=== PATIENT | female | born 1960 | race Caucasian/White ===

== ENCOUNTER 2018-06-29 06:21 | Inpatient (IN) | payer BC ==
--- NOTE | 2018-06-29 06:30 | ED ---
Chest Pain HPI - General Chief Complaint: Chest Pain Stated Complaint: Chest pain Time Seen by Provider: 06/29/18 06:29 Source: patient Mode of arrival: wheelchair Limitations: no limitations - History of Present Illness Initial Comments: Mabel is a morbidly obese 58-year-old female with past medical history of hypertension, hyperlipidemia for which she is currently not on any medications due to medication reaction. Patient presents the emergency department today with a complaint of chest pain. Patient reports that yesterday evening before going to bed she had some sharp chest pains radiating to her back however they resolved and she was able sleep through the night. She woke this morning feeling a lot of pressure in her chest, patient reports she does have a history of asthma but this did not feel similar. She reports a pressure-like sensation throughout her entire chest and palpitations. Patient denies any shortness of breath wheezing or lightheadedness. She denies any diaphoresis. Patient does report a family history of cardiac disease though she has no previous known history of any cardiac disease. - Related Data Home Medications Medication Instructions Recorded Confirmed Fluticasone/Salmeterol [Advair 1 inhalation PO DAILY 03/03/15 03/07/15 100-50 Diskus] Loratadine [Claritin] 10 mg PO DAILY 03/03/15 06/29/18 Losartan [Cozaar] 25 mg PO DAILY 03/03/15 06/29/18 diphenhydrAMINE [Benadryl] 25 mg PO HS PRN 03/03/15 03/07/15 Allergies Allergy/AdvReac Type Severity Reaction Status Date / Time Sulfa (Sulfonamide Allergy Rash/Hives Verified 06/29/18 07:52 Antibiotics) Review of Systems ROS Statement: Those systems with pertinent positive or pertinent negative responses have been documented in the HPI. ROS Other: All systems not noted in ROS Statement are negative. EKG Findings - EKG Comments: EKG Findings:: KG obtained due to complaint of chest pain. EKG obtained at 6:34 AM, rate is 123 rhythm is a wide complex tachycardia, leftward deviation left bundle branch block no acute ST elevations or depressions no evidence of acute ischemia or infarction. There are no previous EKGs for comparison. Past Medical History Past Medical History: Asthma, Hyperlipidemia, Hypertension, Osteoarthritis (OA) History of Any Multi-Drug Resistant Organisms: None Reported Past Surgical History: Breast Surgery Additional Past Surgical History / Comment(s): HEMORRHOIDECTOMY Past Anesthesia/Blood Transfusion Reactions: Motion Sickness Past Psychological History: No Psychological Hx Reported Smoking Status: Never smoker Past Alcohol Use History: Occasional Past Drug Use History: None Reported - Past Family History Mother Family Medical History: No Reported History General Exam - General Exam Comments Initial Comments: Physical Exam GENERAL: Patient is well-developed and well-nourished. Patient is nontoxic and well- hydrated and is in no distress. HENT: Normocephalic, Atraumatic. EYES: PERRL, EOMI PULMONARY: Unlabored respirations. No audible rales rhonchi or wheezing was noted. CARDIOVASCULAR: There is a regular rate and rhythm without any murmurs gallops or rubs. ABDOMEN: Soft and nontender with normal bowel sounds. SKIN: Skin is clear with no lesions or rashes and otherwise unremarkable. : Deferred NEUROLOGIC: Patient is alert and oriented x3. Moving all extremities spontaneously MUSCULOSKELETAL: Normal extremities with adequate strength and full range of motion. No lower extremity swelling or edema. No calf tenderness. PSYCHIATRIC: Normal psychiatric evaluation. Limitations: no limitations Limitations: no limitations Course Vital Signs 06/29/18 06/29/18 06/29/18 06:23 06:47 07:30 Temperature 97.5 F L Pulse Rate 78 85 85 Respiratory 20 16 18 Rate Blood Pressure 193/115 148/83 130/74 O2 Sat by Pulse 95 97 96 Oximetry Chest Pain [facility] Patient was seen and evaluated, history was obtained from patient EKG wide QRS tachycardia, no previous EKG for comparison, significant artifact Chest x-ray with cardiomegaly no other abnormalities Labs were unremarkable, troponin I elevated next Patient's heart rate has decreased repeat EKG is normal sinus rhythm rate of 79 with a leftward deviation, left bundle-branch block, OH is 158, QRS 146, QTC 481, there is no acute ST elevations or depressions no evidence for acute ischemia or infarction. Patient heart score is 5 - history, age, risk factors Given the history, risk factors I will plan to admit her for further evaluation by cardiology. Patient care was discussed with Dr. Bueno who agrees with plan for admission Disposition Clinical Impression: Chest pain, Obesity, LBBB (left bundle branch block) Disposition: ADMITTED IP TO THIS HOSP Condition: Stable Is patient prescribed a controlled substance at d/c from ED?: No Referrals: Aiyana Russo DO [Primary Care Provider] - 1-2 days
[2018-06-29] MEDS ORDERED: HEPARIN SODIUM,PORCINE 5,000 UNIT/ML 1 ML VIAL IV PRN (06:57)
[2018-06-29] MEDS ORDERED: HEPARIN SODIUM,PORCINE 5,000 UNIT/ML 1 ML VIAL IV ONE (06:57)
[2018-06-29 07:07] LABS: Basophils # (A) 0.1 k/uL (0-0.2); Basophils % (A) 1 %; Eosinophils # (A) 0.3 k/uL (0-0.7); Eosinophils % (A) 4 %; HGB 14.9 gm/dL (11.4-16.0); Lymphocytes # (A) 1.8 k/uL (1.0-4.8); Lymphocytes % (A) 22 %; MCH 31.1 pg (25.0-35.0); MCHC 33.9 g/dL (31.0-37.0); MCV 91.8 fL (80.0-100.0); Mean Platelet Volume 6.4; Monocytes # (A) 0.4 k/uL (0-1.0); Monocytes % (A) 5 %; Neutrophils # (A) 5.5 k/uL (1.3-7.7); Neutrophils % (A) 66 %; Platelet Count 175 k/uL (150-450); RBC 4.79 m/uL (3.80-5.40); RDW 14.3 % (11.5-15.5); WBC 8.3 k/uL (3.8-10.6)
[2018-06-29] MEDS: HEPARIN SOD,PORK IN 0.45% NACL 25,000 UNIT in 0.45% NACL 1 250ML.BAG IV SCH (07:11)
[2018-06-29 07:16] LABS: ALT 97 U/L (9-52); AST 89 U/L (14-36); Albumin 4.1 g/dL (3.5-5.0); Alkaline Phosphatase 130 U/L (38-126); Anion Gap 7 mmol/L; Blood Urea Nitrogen 14 mg/dL (7-17); Calcium 9.5 mg/dL (8.4-10.2); Carbon Dioxide 24 mmol/L (22-30); Chloride 110 mmol/L (98-107); Glucose 134 mg/dL (74-99); Magnesium 1.8 mg/dL (1.6-2.3); Potassium 4.2 mmol/L (3.5-5.1); Sodium 141 mmol/L (137-145); Total Bilirubin 0.9 mg/dL (0.2-1.3); Total Protein 7.1 g/dL (6.3-8.2)
--- NOTE | 2018-06-29 07:23 | XR ---
EXAMINATION TYPE: XR chest 2V DATE OF EXAM: 06/29/2018 HISTORY: Chest Pain. REFERENCE: NONE. FINDINGS: Heart size is upper limits of normal. There is a calcified granuloma in the right upper lob e. The lungs are otherwise clear. Pleural spaces are clear. IMPRESSION: 1. BORDERLINE CARDIOMEGALY. 2. EVIDENCE OF OLD GRANULOMATOUS DISEASE.
[2018-06-29 07:43] LABS: Partial Thromboplastin Time 25.1 sec (22.0-30.0); Prothrombin Time 10.4 sec (9.0-12.0)
[2018-06-29] MEDS ORDERED: NITROGLYCERIN SL TABS 0.4 MG TAB SUBLINGUAL PRN (07:44)
--- NOTE | 2018-06-29 11:56 | P.CRDCN ---
History of Present Illness Consult date: 06/29/18 Chief complaint: Chest pain History of present illness: This is a pleasant 58-year-old female patient with a past medical history significant for hypertension as well as asthma presented to the emergency room complaining of chest discomfort. She was in her usual state of health until yesterday when she was at home and she did have chest discomfort at the left upper chest as a sharp kind of discomfort with some radiation to her neck without any associated symptoms. The discomfort was of brief duration. 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 The discomfort lasted that she presented to the emergency room. It lasted at least about an hour. The patient underwent a workup including EKG showing sinus rhythm without any ischemic ST or T-wave abnormalities. She had only one set of enzymes came in to be unremarkable. The chest x-ray showed no acute abnormalities. She does have only hypertension as a risk factor for CAD but she states also that she does have her brother who was diagnosed with "heart attack" in the past. The patient does not smoke. Past Medical History Past Medical History: Asthma, Hyperlipidemia, Hypertension, Osteoarthritis (OA) Additional Past Medical History / Comment(s): No medications for tj cholesterol due to elevated liver enzymes. stopped 6-8 months ago. History of Any Multi-Drug Resistant Organisms: None Reported Past Surgical History: Breast Surgery Additional Past Surgical History / Comment(s): HEMORRHOIDECTOMY Past Anesthesia/Blood Transfusion Reactions: Motion Sickness Past Psychological History: No Psychological Hx Reported Smoking Status: Never smoker Past Alcohol Use History: Occasional Past Drug Use History: None Reported - Past Family History Father Family Medical History: No Reported History Brother(s) Family Medical History: Myocardial Infarction ([place]) Additional Family Medical History / Comment(s): Mi at 30 Mother Family Medical History: No Reported History Additional Family Medical History / Comment(s): Grandparents on both sides have cardiac history-diagnosis. Medications and Allergies Home Medications Medication Instructions Recorded Confirmed Type Budesonide/Formoterol Fumarate 2 puff INHALATION BID 06/29/18 06/29/18 History [Symbicort 160-4.5 Mcg Inhaler] Cetirizine HCl [Zyrtec] 10 mg PO DAILY 06/29/18 06/29/18 History Losartan [Cozaar] 50 mg PO DAILY 06/29/18 06/29/18 History Allergies Allergy/AdvReac Type Severity Reaction Status Date / Time Sulfa (Sulfonamide Allergy Rash/Hives Verified 06/29/18 07:52 Antibiotics) Physical Exam Vitals: Vital Signs Temp Pulse Pulse Resp BP BP Pulse Ox 06/29/18 11:03 95 06/29/18 10:58 97.6 F 79 18 141/74 95 06/29/18 10:54 79 18 06/29/18 10:21 97.6 F 06/29/18 10:00 79 13 122/61 99 06/29/18 09:30 86 12 127/66 99 06/29/18 09:00 89 20 115/64 98 06/29/18 08:30 86 7 L 114/69 96 06/29/18 08:02 89 18 114/68 98 06/29/18 08:00 93 19 140/76 99 06/29/18 07:53 84 18 140/76 98 06/29/18 07:30 85 18 130/74 96 06/29/18 06:47 85 16 148/83 97 06/29/18 06:23 97.5 F L 78 20 193/115 95 Intake and Output 06/28/18 06/29/18 06/29/18 22:59 06:59 14:59 Intake Total 240 Output Total 300 Balance -60 Intake: IV 240 .9 @ 20 240 Output: Urine 300 Other: Voiding Method Toilet # Voids 1 Weight 115.666 kg - Constitutional General appearance: no acute distress - Respiratory Respiratory: bilateral: CTA - Cardiovascular Rhythm: regular Heart sounds: normal: S1, S2 Results 06/29/18 06:49 06/29/18 06:49 Cardiac Enzymes 06/29/18 06/29/18 Range/Units 06:49 06:49 AST 89 H (14-36) U/L Troponin I <0.012 (0.000-0.034) ng/mL Coagulation 06/29/18 Range/Units 06:49 PT 10.4 (9.0-12.0) sec APTT 25.1 (22.0-30.0) sec CBC 06/29/18 Range/Units 06:49 WBC 8.3 (3.8-10.6) k/uL RBC 4.79 (3.80-5.40) m/uL Hgb 14.9 (11.4-16.0) gm/dL Hct 44.0 (34.0-46.0) % Plt Count 175 (150-450) k/uL Comprehensive Metabolic Panel 06/29/18 Range/Units 06:49 Sodium 141 (137-145) mmol/L Potassium 4.2 (3.5-5.1) mmol/L Chloride 110 H (98-107) mmol/L Carbon Dioxide 24 (22-30) mmol/L BUN 14 (7-17) mg/dL Creatinine 0.58 (0.52-1.04) mg/dL Glucose 134 H (74-99) mg/dL Calcium 9.5 (8.4-10.2) mg/dL AST 89 H (14-36) U/L ALT 97 H (9-52) U/L Alkaline Phosphatase 130 H (38-126) U/L Total Protein 7.1 (6.3-8.2) g/dL Albumin 4.1 (3.5-5.0) g/dL Current Medications Generic Name Dose Route Start Last Admin Trade Name Freq PRN Reason Stop Dose Admin Aspirin 325 mg 06/30/18 09:00 Aspirin PO DAILY [facility] Heparin Sodium (Porcine) 0 unit 06/29/18 06:57 Heparin IV PER PROTOCOL PRN Low PTT Protocol Heparin Sodium/Sodium Chloride 250 mls @ 10.005 mls/hr 06/29/18 07:00 06/29/18 07:11 25,000 unit/ Sodium Chloride IV 8.65 units/kg/hr .Q24H [facility] 10.005 mls/hr Administration Protocol 8.65 UNITS/KG/HR Nitroglycerin 0.4 mg 06/29/18 07:44 06/29/18 07:53 Nitrostat SUBLINGUAL 0.4 mg Q5M PRN Administration Chest Pain Intake and Output 06/28/18 06/29/18 06/29/18 22:59 06:59 14:59 Intake Total 240 Output Total 300 Balance -60 Intake: IV 240 .9 @ 20 240 Output: Urine 300 Other: Voiding Method Toilet # Voids 1 Weight 115.666 kg 06/29/18 06:49 06/29/18 06:49 Assessment and Plan Assessment: Assessment #1 two episodes of chest discomfort #2 hypertension #3 asthma #4 family history of CAD Plan #1 acute coronary syndrome to be ruled out. #2 we'll follow-up with the serial cardiac enzymes #3 further recommendation to follow that. Thank you for allowing us but spitting her care and we will continue following up with the patient
--- NOTE | 2018-06-29 14:21 | P.HPIM ---
History of Present Illness H&P Date: 06/29/18 Chief Complaint: Chest pain Mabel Lujan is a 58-year-old female who presented to [facility] emergency room with a chief complaint of chest pain patient initially she had sharp pain in the chest that she describes like stabbing she went to sleep she woke up in the morning still complaining of chest pain at this time it was dull pressure in the chest she came to emergency room and was evaluated EKG revealed evidence of left bundle branch block first set of cardiac enzymes including troponin were negative she was admitted to telemetry floor she was started on IV heparin and cardiology consultation was requested. Patient denies having any cardiac history in the past she stated that she had an EKG more than 10 years ago and she does not remember having been told that she has left bundle branch block or any other abnormality on EKG she does not smoke she never smoked she does not have any history of hypertension or hyperlipidemia or diabetes per patient. She has a history of coronary artery disease in her grandparent at late age. Patient was seen and examined on the telemetry floor on 06/29/2018 at this time she is chest pain-free. She is stable and denies any symptoms at this time. Past Medical History Past Medical History: Asthma, Hyperlipidemia, Hypertension, Osteoarthritis (OA) Additional Past Medical History / Comment(s): No medications for tj cholesterol due to elevated liver enzymes. stopped 6-8 months ago. History of Any Multi-Drug Resistant Organisms: None Reported Past Surgical History: Breast Surgery Additional Past Surgical History / Comment(s): HEMORRHOIDECTOMY Past Anesthesia/Blood Transfusion Reactions: Motion Sickness Past Psychological History: No Psychological Hx Reported Smoking Status: Never smoker Past Alcohol Use History: Occasional Past Drug Use History: None Reported - Past Family History Father Family Medical History: No Reported History Brother(s) Family Medical History: Myocardial Infarction ([place]) Additional Family Medical History / Comment(s): Mi at 30 Mother Family Medical History: No Reported History Additional Family Medical History / Comment(s): Grandparents on both sides have cardiac history-diagnosis. Medications and Allergies Home Medications Medication Instructions Recorded Confirmed Type Budesonide/Formoterol Fumarate 2 puff INHALATION BID 06/29/18 06/29/18 History [Symbicort 160-4.5 Mcg Inhaler] Cetirizine HCl [Zyrtec] 10 mg PO DAILY 06/29/18 06/29/18 History Losartan [Cozaar] 50 mg PO DAILY 06/29/18 06/29/18 History Allergies Allergy/AdvReac Type Severity Reaction Status Date / Time Sulfa (Sulfonamide Allergy Rash/Hives Verified 06/29/18 07:52 Antibiotics) Physical Exam Vitals: Vital Signs Temp Pulse Pulse Resp BP BP Pulse Ox 06/29/18 11:03 95 06/29/18 10:58 97.6 F 79 18 141/74 95 06/29/18 10:54 79 18 06/29/18 10:21 97.6 F 06/29/18 10:00 79 13 122/61 99 06/29/18 09:30 86 12 127/66 99 06/29/18 09:00 89 20 115/64 98 06/29/18 08:30 86 7 L 114/69 96 06/29/18 08:02 89 18 114/68 98 06/29/18 08:00 93 19 140/76 99 06/29/18 07:53 84 18 140/76 98 06/29/18 07:30 85 18 130/74 96 06/29/18 06:47 85 16 148/83 97 06/29/18 06:23 97.5 F L 78 20 193/115 95 Intake and Output 06/28/18 06/29/18 06/29/18 22:59 06:59 14:59 Intake Total 426.7 Output Total 300 Balance 126.7 Intake: IV 240 .9 @ 20 240 Intake, IV Titration 66.7 Amount Heparin Sod,Pork in 0.45% 66.7 NaCl 25,000 unit In 0.45 % NaCl 1 250ml.bag @ 8.65 UNITS/KG/HR 10.005 mls/ hr IV .Q24H [facility] Rx#: [id number] Oral 120 Output: Urine 300 Other: Voiding Method Toilet # Voids 1 # Bowel Movements 0 Weight 115.666 kg In general patient is alert and oriented 3 in no apparent distress HEENT head normocephalic and atraumatic Neck is supple no JVD no goiter no lymphadenopathy Chest exam reveals a few scattered crackles no wheezing Cardiac exam reveals regular heart sounds no gallops no murmurs Abdomen is soft nontender no organomegaly with normal bowel sounds Extremity exam reveals no edema no cyanosis or clubbing Neurological examination reveals no gross focal deficit Results CBC & Chem 7: 06/29/18 06:49 06/29/18 06:49 Labs: Abnormal Lab Results - Last 24 Hours (Table) 06/29/18 06/29/18 Range/Units 06:49 12:15 APTT 33.4 H (22.0-30.0) sec Chloride 110 H (98-107) mmol/L Glucose 134 H (74-99) mg/dL AST 89 H (14-36) U/L ALT 97 H (9-52) U/L Alkaline Phosphatase 130 H (38-126) U/L Thrombosis Risk Factor Assmnt - Choose All That Apply Any of the Below Risk Factors Present?: Yes Each Factor Represents 1 point: Age 41-60 years, Obesity (BMI >25) Other Risk Factors: No Other congenital or acquired thrombophilia - If yes, enter type in comment: No Thrombosis Risk Factor Assessment Total Risk Factor Score: 2 Thrombosis Risk Factor Assessment Level: Low Risk Assessment and Plan Plan: #1 episodes of chest pain since last night, at this time patient is chest pain- free, EKG revealing left bundle branch block, first troponin is negative negative #2 underlying history of hypertension maintained on losartan continue #3 underlying history of asthma At this time will continue with current management, with serial EKG and cardiac enzymes checks Resume home medications losartan and Symbicort inhaler Cardiology consult following possible stress test tomorrow
[2018-06-29] MEDS: LOSARTAN 50 MG TAB PO SCH (18:00)
[2018-06-29] MEDS: SYMBICORT 160-4.5 MCG INHALER INHALATION SCH (19:37)
[2018-06-29] MEDS: LORATADINE 10 MG TAB PO SCH (20:17)
[2018-06-30 07:29] LABS: Basophils # (A) 0.1 k/uL (0-0.2); Basophils % (A) 1 %; Eosinophils # (A) 0.3 k/uL (0-0.7); Eosinophils % (A) 4 %; HCT 41.6 % (34.0-46.0); HGB 13.4 gm/dL (11.4-16.0); Lymphocytes # (A) 1.7 k/uL (1.0-4.8); Lymphocytes % (A) 23 %; MCH 29.8 pg (25.0-35.0); MCHC 32.1 g/dL (31.0-37.0); MCV 92.6 fL (80.0-100.0); Mean Platelet Volume 6.7; Monocytes # (A) 0.3 k/uL (0-1.0); Monocytes % (A) 5 %; Neutrophils # (A) 4.7 k/uL (1.3-7.7); Neutrophils % (A) 66 %; Platelet Count 136 k/uL (150-450); RBC 4.49 m/uL (3.80-5.40); RDW 14.3 % (11.5-15.5); WBC 7.2 k/uL (3.8-10.6)
[2018-06-30 07:39] LABS: Cholesterol 208 mg/dL (<200); HDL Cholesterol 52 mg/dL (40-60); LDL Cholesterol,Calculated 133 mg/dL (0-99); Triglycerides 117 mg/dL (<150)
[2018-06-30] MEDS: SYMBICORT 160-4.5 MCG INHALER INHALATION SCH ×2 (08:36→20:59)
[2018-06-30 08:53] LABS: ALT 84 U/L (9-52); AST 68 U/L (14-36); Albumin 3.6 g/dL (3.5-5.0); Alkaline Phosphatase 110 U/L (38-126); Anion Gap 6 mmol/L; Blood Urea Nitrogen 12 mg/dL (7-17); Calcium 8.8 mg/dL (8.4-10.2); Carbon Dioxide 24 mmol/L (22-30); Chloride 109 mmol/L (98-107); Glucose 114 mg/dL (74-99); Potassium 3.8 mmol/L (3.5-5.1); Sodium 139 mmol/L (137-145); Total Bilirubin 1.2 mg/dL (0.2-1.3); Total Protein 6.2 g/dL (6.3-8.2)
[2018-06-30] MEDS: HEPARIN SOD,PORK IN 0.45% NACL 25,000 UNIT in 0.45% NACL 1 250ML.BAG IV SCH ×2 (10:42→17:52)
[2018-06-30] MEDS ORDERED: AMINOPHYLLINE 500 MG/20 ML VIAL IV PRN (10:50)
[2018-06-30] MEDS ORDERED: REGADENOSON 0.4 MG/5 ML SYRINGE IV ONE (10:50)
[2018-06-30] MEDS ORDERED: CAFFEINE CITRATE 60 MG/3 ML VIAL IV PRN (10:50)
[2018-06-30] MEDS ORDERED: SODIUM CHLORIDE 0.9% IV ONE (11:00)
[2018-06-30] MEDS ORDERED: DIPYRIDAMOLE IV ONE (11:00)
--- NOTE | 2018-06-30 11:53 | P.PN ---
Subjective Progress Note Date: 06/30/18 This is a pleasant 58-year-old female patient with a past medical history significant for hypertension as well as asthma presented to the emergency room complaining of chest discomfort. She was in her usual state of health until yesterday when she was at home and she did have chest discomfort at the left upper chest as a sharp kind of discomfort with some radiation to her neck without any associated symptoms. The discomfort was of brief duration. 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 The discomfort lasted that she presented to the emergency room. It lasted at least about an hour. The patient underwent a workup including EKG showing sinus rhythm without any ischemic ST or T-wave abnormalities. She had only one set of enzymes came in to be unremarkable. The chest x-ray showed no acute abnormalities. She does have only hypertension as a risk factor for CAD but she states also that she does have her brother who was diagnosed with "heart attack" in the past. The patient does not smoke. 06/30/2018 Patient seen and examined this morning, denies any further chest discomfort. Troponins negative 3. We would recommend her to undergo a Lexiscan stress test today. Pending those results further recommendations will be made. Objective - Vital Signs Vital signs: Vital Signs Temp 98.2 F 06/30/18 11:36 Pulse 70 06/30/18 11:37 Resp 16 06/30/18 11:37 BP 148/67 06/30/18 11:36 Pulse Ox 93 L 06/30/18 11:36 Intake & Output 06/29/18 06/30/18 06/30/18 18:59 06:59 18:59 Intake Total 666.7 891.157 0 Output Total 650 Balance 16.7 891.157 0 Weight 118.2 kg 119 kg Intake: IV 240 160 .9 @ 20 240 160 Intake, IV Titration 66.7 131.157 Amount Heparin Sod,Pork in 0.45% 66.7 131.157 NaCl 25,000 unit In 0.45 % NaCl 1 250ml.bag @ 8.65 UNITS/KG/HR 10.005 mls/ hr IV .Q24H [facility] Rx#: [id number] Oral 360 600 0 Output: Urine 650 Other: Voiding Method Toilet Toilet # Voids 1 1 # Bowel Movements 0 - Exam PHYSICAL EXAMINATION: GENERAL: 88-year-old female in no acute distress at the time of my examination HEENT: Head is atraumatic, normocephalic. Pupils equal, round. Sclera anicteric. Conjunctiva are clear. Mucous membranes of the mouth are moist. Neck is supple. There is no elevated jugular venous pressure. No carotid bruit is heard. HEART EXAMINATION: Heart S1, S2 normal. No murmur or gallop heard. CHEST EXAMINATION: Lungs are clear to auscultation and precussion. No chest wall tenderness is noted on palpation or with deep breathing. ABDOMEN: Soft, nontender. Bowel sounds are heard. No organomegaly noted. EXTREMITIES: 2+ peripheral pulses with no evidence of peripheral edema and no calf tenderness noted. NEUROLOGIC patient is awake, alert and oriented 3 . . - Labs CBC & Chem 7: 06/30/18 06:23 06/30/18 06:23 Labs: Abnormal Lab Results - Last 24 Hours (Table) 06/29/18 06/29/18 06/30/18 Range/Units 12:15 19:24 06:23 Plt Count 136 L (150-450) k/uL APTT 33.4 H 36.9 H (22.0-30.0) sec Chloride (98-107) mmol/L Glucose (74-99) mg/dL AST (14-36) U/L ALT (9-52) U/L Total Protein (6.3-8.2) g/dL Cholesterol (<200) mg/dL LDL Cholesterol, Calc (0-99) mg/dL 06/30/18 06/30/18 06/30/18 Range/Units 06:23 06:23 06:23 Plt Count (150-450) k/uL APTT 63.7 H (22.0-30.0) sec Chloride 109 H (98-107) mmol/L Glucose 114 H (74-99) mg/dL AST 68 H (14-36) U/L ALT 84 H (9-52) U/L Total Protein 6.2 L (6.3-8.2) g/dL Cholesterol 208 H (<200) mg/dL LDL Cholesterol, Calc 133 H (0-99) mg/dL Assessment and Plan Plan: Assessment and plan #1 chest discomfort, atypical for acute coronary syndrome. Troponins negative 3. #2 hypertension #3 asthma #4 family history of premature coronary artery disease Plan Patient has been recommended to undergo a Lexiscan stress test today. Pending those results further recommendations will be made. DNP note has been reviewed, I agree with a documented findings and plan of care. Patient was seen and examined.
--- NOTE | 2018-06-30 12:12 | ECHOF ---
Referral Reason:chest pain MEASUREMENTS -------- HEIGHT: 165.1 cm WEIGHT: 117.9 kg BP: 140/67 IVSd: 1.4 cm (0.6 - 1.1) LVIDd: 4.4 cm (3.9 - 5.3) LVPWd: 1.3 cm (0.6 - 1.1) IVSs: 1.4 cm LVIDs: 4.1 cm LVPWs: 1.3 cm LA Diam: 3.0 cm (2.7 - 3.8) RVIDd: 2.9 cm (< 3.3) LAESV Index (A-L): 20.08 ml/m Ao Diam: 2.7 cm (2.0 - 3.7) LA Diam: 3.8 cm (2.7 - 3.8) AV Cusp: 1.4 cm (1.5 - 2.6) EPSS: 0.7 cm MV E Rogelio: 0.87 m/s MV DecT: 221 ms MV A Rogelio: 0.79 m/s MV E/A Ratio: 1.09 RAP: 5.00 mmHg RVSP: 32.20 mmHg MV EF SLOPE: 81.56 mm/s (70 - 150) MV EXCURSION: 17.33 mm (> 18.000) FINDINGS -------- Undetermined rhythm. This was a technically adequate study. The left ventricular size is normal. There is moderate concentric left ventricular hypertrophy. O verall left ventricular systolic function is normal with, an EF between 55 - 60 %. The right ventricle is normal in size. The left atrial size is normal. The right atrial size is normal. Interatrial and interventricular septum intact. There is mild aortic valve sclerosis. There is no evidence of aortic regurgitation. Mild mitral annular calcification present. Mild mitral regurgitation is present. Mild tricuspid regurgitation present. There is no evidence of pulmonary hypertension. The right v entricular systolic pressure, as measured by Doppler, is 32.20mmHg. The pulmonic valve was not well visualized. The aortic root size is normal. Normal inferior vena cava with normal inspiratory collapse consistent with estimated right atrial pre ssure of 5 mmHg. There is no pericardial effusion. CONCLUSIONS -------- 1. The left ventricular size is normal. 2. There is moderate concentric left ventricular hypertrophy. 3. Overall left ventricular systolic function is normal with, an EF between 55 - 60 %. 4. The right ventricle is normal in size. 5. The left atrial size is normal. 6. The right atrial size is normal. 7. Interatrial and interventricular septum intact. 8. There is mild aortic valve sclerosis. 9. Mild mitral annular calcification present. 10. Mild mitral regurgitation is present. 11. Mild tricuspid regurgitation present. 12. There is no evidence of pulmonary hypertension. 13. The right ventricular systolic pressure, as measured by Doppler, is 32.20mmHg. 14. The pulmonic valve was not well visualized. 15. The aortic root size is normal. 16. Normal inferior vena cava with normal inspiratory collapse consistent with estimated right atrial pressure of 5 mmHg. 17. There is no pericardial effusion. FORM BLOCK MAKER: Eve Johnson RDCS
--- NOTE | 2018-06-30 14:02 | NM ---
EXAMINATION TYPE: NM stress persantine cardiolit DATE OF EXAM: 06/30/2018 COMPARISON: NONE HISTORY: Precordial chest pain and abnormal EKG TECHNIQUE: After the intravenous administration of 10.5 mCi Tc 99m Sestamibi - Cardiolite resting SP ECT images acquired 45 minutes post injection. The patient received 0.4mg Lexiscan, 25.7 mCi Tc 99m Sestamibi - Stress images obtained [address] injection FINDINGS: Review of stress and rest SPECT images demonstrates mild decreased perfusion involving the anterior w all may reflect stress-induced ischemia. Correlate clinically. Gated analysis shows normal wall motio n with an estimated left ventricular ejection fraction of 52 %. IMPRESSION: Small area of stress-induced ischemia anterior wall is difficult to exclude. Correlate clinically.
[2018-06-30] MEDS ORDERED: NITROGLYCERIN SL TABS 0.4 MG TAB SUBLINGUAL PRN (14:11)
[2018-06-30] MEDS ORDERED: ALPRAZolam 0.25 MG TAB PO PRN (14:11)
[2018-06-30] MEDS ORDERED: ALPRAZolam 0.5 MG TAB PO PRN (14:11)
--- NOTE | 2018-06-30 14:12 | P.PN ---
Subjective Progress Note Date: 06/30/18 Mabel Lujan is a 58-year-old female who presented to [facility] emergency room with a chief complaint of chest pain patient initially she had sharp pain in the chest that she describes like stabbing she went to sleep she woke up in the morning still complaining of chest pain at this time it was dull pressure in the chest she came to emergency room and was evaluated EKG revealed evidence of left bundle branch block first set of cardiac enzymes including troponin were negative she was admitted to telemetry floor she was started on IV heparin and cardiology consultation was requested. Patient denies having any cardiac history in the past she stated that she had an EKG more than 10 years ago and she does not remember having been told that she has left bundle branch block or any other abnormality on EKG she does not smoke she never smoked she does not have any history of hypertension or hyperlipidemia or diabetes per patient. She has a history of coronary artery disease in her grandparent at late age. Patient was seen and examined on the telemetry floor on 06/29/2018 at this time she is chest pain-free. She is stable and denies any symptoms at this time. On 06/30/2018 patient alert and oriented 3. At this time patient does deny chest pain or shortness of breath. Patient undergoing stress test today. At this time patient denies any shortness of breath. Patient denies nausea vomiting or diarrhea. Patient denies any urinary burning or frequency Objective - Vital Signs Vital signs: Vital Signs Temp 98.2 F 06/30/18 11:36 Pulse 70 06/30/18 11:37 Resp 16 06/30/18 11:37 BP 148/67 06/30/18 11:36 Pulse Ox 93 L 06/30/18 11:36 Intake & Output 06/29/18 06/30/18 06/30/18 18:59 06:59 18:59 Intake Total 666.7 891.157 0 Output Total 650 Balance 16.7 891.157 0 Weight 118.2 kg 119 kg 118.841 kg Intake: IV 240 160 .9 @ 20 240 160 Intake, IV Titration 66.7 131.157 Amount Heparin Sod,Pork in 0.45% 66.7 131.157 NaCl 25,000 unit In 0.45 % NaCl 1 250ml.bag @ 8.65 UNITS/KG/HR 10.005 mls/ hr IV .Q24H GRAHAM Rx#: [id number] Oral 360 600 0 Output: Urine 650 Other: Voiding Method Toilet Toilet # Voids 1 1 1 # Bowel Movements 0 - Exam Head normocephalic Neck supple Lungs clear to auscultation bilaterally no wheezing or crackles Heart regular rate and rhythm S1-S2, no rub or gallop Abdomen is soft nontender nondistended positive bowel sounds no hepatosplenomegaly Extremities no edema Neuro alert and orientated to 3 - Labs CBC & Chem 7: 06/30/18 06:23 06/30/18 06:23 Labs: Abnormal Lab Results - Last 24 Hours (Table) 06/29/18 06/30/18 06/30/18 Range/Units 19:24 06:23 06:23 Plt Count 136 L (150-450) k/uL APTT 36.9 H (22.0-30.0) sec Chloride (98-107) mmol/L Glucose (74-99) mg/dL AST (14-36) U/L ALT (9-52) U/L Total Protein (6.3-8.2) g/dL Cholesterol 208 H (<200) mg/dL LDL Cholesterol, Calc 133 H (0-99) mg/dL 06/30/18 06/30/18 Range/Units 06:23 06:23 Plt Count (150-450) k/uL APTT 63.7 H (22.0-30.0) sec Chloride 109 H (98-107) mmol/L Glucose 114 H (74-99) mg/dL AST 68 H (14-36) U/L ALT 84 H (9-52) U/L Total Protein 6.2 L (6.3-8.2) g/dL Cholesterol (<200) mg/dL LDL Cholesterol, Calc (0-99) mg/dL Assessment and Plan Assessment: #1 episodes of chest pain since last night, at this time patient is chest pain- free, EKG revealing left bundle branch block. Patient on heparin drip Troponins negative 3. Patient underwent stress test showing small area of stress-induced ischemia anterior wall is difficult to exclude. Correlate clinically. 2-D echo completed showing an EF of 55-60%. 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 Alkaline phosphatase 1:30, ALT 97 AST 89 his numbers do appear to be trending down I performed an examination of the patient and discussed their management with the Nurse Practitioner. I have reviewed the Nurse Practitioner's notes and agree with the documented findings and plan of care
[2018-06-30] MEDS: LOSARTAN 50 MG TAB PO SCH (15:47)
[2018-06-30] MEDS: LORATADINE 10 MG TAB PO SCH (15:47)
[2018-06-30] MEDS: ASPIRIN 325 MG TAB PO SCH (15:47)
--- NOTE | 2018-06-30 20:12 | P.STRESS ---
- Stress Test Note Stress Test Results/Findings: Exam Performed: stress test Exam Date: 06/30/18 Reason for Exam: CHEST PAIN, DIFFICULTY BREATHING Height: 5 ft 5 in Weight: 118.841 kg Protocol: PERSANTINE CARDIOLITE Stage: Duration of Exercise: 12:00 Resting Heart Rate: 72 Resting Blood Pressure: 154/68 Maximum Achieved Heart Rate: 96 Maximum Achieved Blood Pressure: 175/77 85% PMHR: 138 100% PMHR: 162 METS: Technologist Comment: Stress Test Results/Findings: Baseline heart rate 72 beats a minute, Baseline blood pressure 154/68 mmHg Baseline 20 ECG shows sinus rhythm normal [place] (bundle-branch block Patient received Persantine infusion per protocol. She complained of chest discomfort through the procedure The blood pressure 175/[address] segment abnormalities noted, please note patient has an underlying left bundle branch block pattern New proportional be reported separately
[2018-07-01] MEDS: ASPIRIN 325 MG TAB PO SCH (05:08)
[2018-07-01] MEDS: LOSARTAN 50 MG TAB PO SCH (05:15)
[2018-07-01] MEDS ORDERED: ATORVASTATIN 80 MG TAB PO ONE (06:00)
[2018-07-01] MEDS ORDERED: ASPIRIN 325 MG TAB PO ONE (06:00)
[2018-07-01] MEDS ORDERED: SODIUM CHLORIDE 0.9% 1,000 ML in EMPTY BAG 1 BAG IV ONE (06:00)
[2018-07-01 07:21] LABS: Basophils % (A) 0 %; Eosinophils # (A) 0.3 k/uL (0-0.7); Eosinophils % (A) 3 %; HCT 41.9 % (34.0-46.0); HGB 13.2 gm/dL (11.4-16.0); Lymphocytes # (A) 1.8 k/uL (1.0-4.8); Lymphocytes % (A) 19 %; MCH 29.2 pg (25.0-35.0); MCHC 31.4 g/dL (31.0-37.0); MCV 93.1 fL (80.0-100.0); Mean Platelet Volume 6.9; Monocytes # (A) 0.4 k/uL (0-1.0); Monocytes % (A) 4 %; Neutrophils # (A) 6.5 k/uL (1.3-7.7); Neutrophils % (A) 71 %; Platelet Count 161 k/uL (150-450); RDW 14.3 % (11.5-15.5); WBC 9.2 k/uL (3.8-10.6)
[2018-07-01] MEDS: SYMBICORT 160-4.5 MCG INHALER INHALATION SCH (08:39)
[2018-07-01] MEDS ORDERED: LIDOCAINE 1% INJ 10MG/ML (20 ML MDV) ONE (10:44)
[2018-07-01] MEDS ORDERED: HEPARIN SODIUM 1,000 UN/ML (10ML VL) ONE (10:44)
[2018-07-01] MEDS ORDERED: VERAPAMIL 2.5 MG/ML 2 ML AMP ONE (10:44)
[2018-07-01 11:06] VITALS: RESP 16
[2018-07-01] MEDS ORDERED: MIDAZOLAM (PF) 2 MG/2 ML VIAL IVP ONE (11:10)
[2018-07-01] MEDS ORDERED: LIDOCAINE 1% INJ 10MG/ML (20 ML MDV) SQ ONE (11:12)
[2018-07-01] MEDS: VERAPAMIL SYRINGE (5 MG/10 ML) INTRAARTER ONE ×2 (11:13→11:23)
[2018-07-01] MEDS ORDERED: HEPARIN SODIUM 1,000 UN/ML (10ML VL) IV ONE (11:14)
[2018-07-01] MEDS ORDERED: IV FLUID CONTINUATION 150 ML IV ONE (11:15)
[2018-07-01] MEDS ORDERED: IOPAMIDOL-370 125ML BTL INJ ONE (11:23)
[2018-07-01] MEDS ORDERED: RX INFO: IV CONTRAST WAS GIVEN 1 EACH MISC MISCELLANE PRN (11:28)
[2018-07-01] MEDS ORDERED: SODIUM CHLORIDE 0.9% 1,000 ML IV SCH (11:30)
--- NOTE | 2018-07-01 12:24 | CC ---
CARDIAC CATHETERIZATION REPORT DATE OF SERVICE: 07/01/2018 PERFORMING PHYSICIAN: Brian Tran MD, Integrated Specialist. PROCEDURE PERFORMED: 1. Selective right and left coronary angiogram. 2. Left heart catheterization. INDICATION: This is a pleasant 58-year-old female patient with hypertension and dyslipidemia who presented to the hospital with chest discomfort and underwent myocardial perfusion imaging stress test and that revealed apical ischemia. Because of that, heart catheterization was advised. APPROACH: Right radial artery. COMPLICATION: None. LEVEL OF SEDATION: Moderate with sedation length of 15 minutes. PROCEDURE DESCRIPTION: After obtaining an informed consent, the patient was brought to the cardiac mushroom laborer. The right radial artery was cannulated using micropuncture technique, the micropuncture wire passed easily. Then I placed a 5-Niuean sheath in the right radial artery. After that, I gave the patient 2 mg of verapamil IA and 10,000 units of heparin IV. I did selective right and left coronary angiogram using JR4 and JL3.5 catheters. Left heart catheterization was performed using the JR4 catheter which flipped into the LV then I did pullback across the aortic valve. The procedure was completed without any complication. SELECTIVE CORONARY ANGIOGRAM: 1. The right coronary artery is a large caliber vessel and it is a dominant vessel. The proximal RCA appeared to be normal. The mid RCA has a lesion appeared to be in the range of 50%. The distal RCA appeared to have another lesion just by the bifurcation into PDA and PLV branches and appeared to be in the range of 50%. The PDA and PLV branches appeared to be normal. 2. The left main is angiographically normal. It bifurcates into the left circumflex and left anterior descending artery. 3. The left circumflex is a large caliber vessel. It is a nondominant vessel and appeared to have mild disease only. It gives rise into the first and second obtuse marginal branches, both appeared to be angiographically normal. 4. The LAD is a large caliber vessel with mild disease in the midportion only. It gives rise into a large diagonal branch which seems to be normal. HEMODYNAMICS: The left ventricular end-diastolic pressure was 10 mmHg without any gradient across the aortic valve. CONCLUSION: 1. Intermediate disease involving the right coronary artery and mild disease involving the left anterior descending artery. 2. Normal left ventricular end-diastolic pressure. POSTPROCEDURE MANAGEMENT: 1. Aggressive cholesterol control. 2. Risk factors modifications. 3. Follow up with the patient. MMODL / IJN: [id number] /
[2018-07-01] MEDS ORDERED: METOPROLOL SUCCINATE (ER) 25 MG TAB.ER.24H PO SCH (13:15)
--- NOTE | 2018-07-01 14:00 | P.DS ---
Providers Date of admission: 06/29/18 07:44 Expected date of discharge: 07/01/18 Attending physician: Elinor Bueno Consults: 06/29/18 07:44 Consult Physician Urgent Consulting Provider: [facility] Consult Reason/Comments: chest pain, new LBBB Do you want consulting provider notified?: Yes Primary care physician: Aiyana Russo [facility] Course: Discharge diagnosis #1 episodes of chest pain since last night, at this time patient is chest pain- free, EKG revealing left bundle branch block. Patient on heparin drip Troponins negative 3. Patient underwent stress test showing small area of stress-induced ischemia anterior wall is difficult to exclude. Correlate clinically. 2-D echo completed showing an EF of 55-60%. Cardiac cath completed today showing inter mediate to disease involving the right coronary artery and mild disease involving the left anterior descending artery. Normal left ventricular end- systolic pressure. Per cardiology services aggressive cholesterol control and risk factor modifications. Patient has been cleared for discharge from cardiology standpoint once post cardiac cath protocol is completed. Patient to follow-up outpatient with cardiology services #2 underlying history of hypertension maintained on losartan continue #3 underlying history of asthma #4 elevated liver enzymes. Alkaline phosphatase 1:30, ALT 97 AST 89 his numbers do appear to be trending down. Repeat BMP ordered for 2 days #5 hyperlipidemia. Statin started per cardiology. Liver enzymes are trending down. Will order repeat CMP for 2 days and patient to follow-up with her PCP for further management Hospital course Mabel Lujan is a 58-year-old female who presented to [facility] emergency room with a chief complaint of chest pain patient initially she had sharp pain in the chest that she describes like stabbing she went to sleep she woke up in the morning still complaining of chest pain at this time it was dull pressure in the chest she came to emergency room and was evaluated EKG revealed evidence of left bundle branch block first set of cardiac enzymes including troponin were negative she was admitted to telemetry floor she was started on IV heparin and cardiology consultation was requested. Patient denies having any cardiac history in the past she stated that she had an EKG more than 10 years ago and she does not remember having been told that she has left bundle branch block or any other abnormality on EKG she does not smoke she never smoked she does not have any history of hypertension or hyperlipidemia or diabetes per patient. She has a history of coronary artery disease in her grandparent at late age. Patient was seen and examined on the telemetry floor on 06/29/2018 at this time she is chest pain-free. She is stable and denies any symptoms at this time. On 06/30/2018 patient alert and oriented 3. At this time patient does deny chest pain or shortness of breath. Patient undergoing stress test today. At this time patient denies any shortness of breath. Patient denies nausea vomiting or diarrhea. Patient denies any urinary burning or frequency On 07/01/2018 patient alert and oriented 3. Patient underwent cardiac catheterization showing intermediate disease involving the right coronary artery and mild disease involving the left anterior descending artery. Normal left ventricular end-diastolic pressure. Per cardiology patient may be discharged once post cardiac cath care is completed. At this time patient denies chest pain or shortness breath. Denies vomiting or diarrhea. Patient denies any urinary burning or frequency. I performed an examination of the patient and discussed their management with the Nurse Practitioner. I have reviewed the Nurse Practitioner's notes and agree with the documented findings and plan of care Patient Condition at Discharge: Stable Plan - Discharge Summary Discharge Rx Participant: Yes New Discharge Prescriptions: New Aspirin 81 mg PO DAILY #30 tab Atorvastatin [Lipitor] 80 mg PO HS #30 tab Nitroglycerin Sl Tabs [Nitrostat] 0.4 mg SUBLINGUAL Q5M PRN #25 tab PRN Reason: Chest Pain Metoprolol Succinate (ER) [Toprol XL] 25 mg PO DAILY #30 tab.er.24h Continue Budesonide/Formoterol Fumarate [Symbicort 160-4.5 Mcg Inhaler] 2 puff INHALATION BID Losartan [Cozaar] 50 mg PO DAILY Cetirizine HCl [Zyrtec] 10 mg PO DAILY Discharge Medication List Budesonide/Formoterol Fumarate [Symbicort 160-4.5 Mcg Inhaler] 2 puff INHALATION BID 06/29/18 [History] Cetirizine HCl [Zyrtec] 10 mg PO DAILY 06/29/18 [History] Losartan [Cozaar] 50 mg PO DAILY 06/29/18 [History] Aspirin 81 mg PO DAILY #30 tab 07/01/18 [Rx] Atorvastatin [Lipitor] 80 mg PO HS #30 tab 07/01/18 [Rx] Metoprolol Succinate (ER) [Toprol XL] 25 mg PO DAILY #30 tab.er.24h 07/01/18 [Rx] Nitroglycerin Sl Tabs [Nitrostat] 0.4 mg SUBLINGUAL Q5M PRN #25 tab 07/01/18 [Rx] Follow up Appointment(s)/Referral(s): Brian Tran MD [STAFF PHYSICIAN] - 07/11/18 1:45 pm Aiyana Russo DO [Primary Care Provider] - 1-2 days Ambulatory/Diagnostic Orders: Comprehensive Metabolic Panel [LAB.AMB] Time Frame: 2 Days, Location: None Selected Patient Instructions/Handouts: *Surgery [facility] - After Heart Catheterization - [facility] Instructions, Heart Healthy Diet (DC), Cardiac Stress Test (DC) Discharge Disposition: HOME SELF-CARE
[2018-07-01] MEDS: LORATADINE 10 MG TAB PO SCH (14:04)
[2018-07-01 15:02] VITALS: PULSE 76; TEMP 98.2
[2018-07-01 17:18] VITALS: BP 146/60
[2018-07-01] MEDS ORDERED: ATORVASTATIN 80 MG TAB PO SCH (21:00)
[2018-07-02] MEDS ORDERED: ASPIRIN 81 MG PO SCH (09:00)
== END 2018-07-01 19:30 | disposition home or self-care (01) | DRG 287 ==
LOC: EC 06:21 → 1SOBS 07:44 → OBSVTOIN 07:44 → 3SCARD 08:07
PROVIDERS: ADMIT Internal Medicine; ATTEND Internal Medicine
PROC: B2111ZZ Fluoroscopy of Multiple Coronary Arteries using Low Osmolar Contrast (ICD-10-PCS; 2018-07-01)
PROC: 4A023N7 Measurement of Cardiac Sampling and Pressure, Left Heart, Percutaneous Approach (ICD-10-PCS; principal; 2018-07-01 10:46)
DX: R07.9 Chest pain, unspecified (principal); Z68.41 Body mass index [BMI] 40.0-44.9, adult; E66.01 Morbid (severe) obesity due to excess calories; I11.9 Hypertensive heart disease without heart failure; E78.5 Hyperlipidemia, unspecified; I25.10 Atherosclerotic heart disease of native coronary artery without angina pectoris; I44.7 Left bundle-branch block, unspecified; J45.909 Unspecified asthma, uncomplicated; M19.90 Unspecified osteoarthritis, unspecified site; Z79.51 Long term (current) use of inhaled steroids; Z79.899 Other long term (current) drug therapy; Z82.49 Family history of ischemic heart disease and other diseases of the circulatory system; Z88.2 Allergy status to sulfonamides
CPT/HCPCS: 36415; 71046; 78452; 80053; 80061; 83735; 83880; 84484; 85025; 85610; 85730; 93005; 93017; 93306; 93458; 94640; 96365; 96366; 96376; 99285

== ENCOUNTER 2022-06-06 11:51 | Observation (INO) | payer BC ==
[2022-06-06] MEDS ORDERED: ASPIRIN 81 MG PO STA (12:31)
[2022-06-06] MEDS ORDERED: NITROGLYCERIN OINT 1 INCH/GM PACKET TOPICAL STA (12:31)
--- NOTE | 2022-06-06 12:42 | ED ---
General Adult HPI - General Chief complaint: Chest Pain Stated complaint: chest pain Time Seen by Provider: 06/06/22 12:00 Source: patient, RN notes reviewed, old records reviewed Mode of arrival: ambulatory Limitations: no limitations - History of Present Illness Initial comments: This a 62-year-old female who comes in stating she had 6 minutes of chest pressure that made her short of breath. Patient states in the past she has been told she has a 50% blockage. Patient states she's never had a stent in place. Patient states she has high blood pressure and high cholesterol. Patient states the chest pain came on at rest it was a pressure, heaviness sensation there was a little fluttering is well and she was very short of breath per patient denies any radiation of the pain patient states became very hot as well per patient states the pain subsided and she no longer is having any pain currently. Patient denies any recent fever chills or cough per patient denies any abdominal pain patient denies nausea vomiting diarrhea. Patient denies any calf pain or swelling legs - Related Data Home Medications Medication Instructions Recorded Confirmed Budesonide/Formoterol Fumarate 2 puff INHALATION RT-BID PRN 06/29/18 06/06/22 [Symbicort 160-4.5 Mcg Inhaler] Cetirizine HCl [Zyrtec] 10 mg PO DAILY 06/29/18 06/06/22 Aspirin EC [Ecotrin Low Dose] 81 mg PO DAILY 06/06/22 06/06/22 Losartan Potassium 100 mg PO DAILY 06/06/22 06/06/22 Metoprolol Succinate (ER) [Toprol 50 mg PO DAILY 06/06/22 06/06/22 Xl] Sertraline [Zoloft] 25 mg PO HS 06/06/22 06/06/22 diphenhydrAMINE HCL [Benadryl] 25 mg PO HS 06/06/22 06/06/22 Previous Rx's Medication Instructions Recorded Atorvastatin [Lipitor] 80 mg PO HS #30 tab 07/01/18 Allergies Allergy/AdvReac Type Severity Reaction Status Date / Time Sulfa (Sulfonamide Allergy Rash/Hives Verified 06/06/22 12:46 Antibiotics) sulfamethoxazole Allergy Rash/Hives Verified 06/06/22 12:48 [From Bactrim] trimethoprim [From Bactrim] Allergy Rash/Hives Verified 06/06/22 12:48 Review of Systems ROS Statement: Those systems with pertinent positive or pertinent negative responses have been documented in the HPI. ROS Other: All systems not noted in ROS Statement are negative. Past Medical History Past Medical History: Asthma, Coronary Artery Disease (CAD), Diabetes Mellitus, Hyperlipidemia, Hypertension, Osteoarthritis (OA) Additional Past Medical History / Comment(s): No medications for tj cholesterol due to elevated liver enzymes. stopped 6-8 months ago. History of Any Multi-Drug Resistant Organisms: None Reported Past Surgical History: Breast Surgery, Heart Catheterization Additional Past Surgical History / Comment(s): HEMORRHOIDECTOMY Past Anesthesia/Blood Transfusion Reactions: Motion Sickness Past Psychological History: No Psychological Hx Reported Smoking Status: Never smoker Past Alcohol Use History: Occasional Past Drug Use History: None Reported - Past Family History Father Family Medical History: No Reported History Brother(s) Family Medical History: Myocardial Infarction ([place]) Additional Family Medical History / Comment(s): Mi at 30 Mother Family Medical History: No Reported History Additional Family Medical History / Comment(s): Grandparents on both sides have cardiac history-diagnosis. General Exam - General Exam Comments Initial Comments: GENERAL: Patient is well-developed and well-nourished. Patient is nontoxic and well- hydrated and is in no acute distress. ENT: Neck is soft and supple. No significant lymphadenopathy is noted. Oropharynx is clear. Moist mucous membranes. Neck has full range of motion without eliciting any pain. EYES: The sclera were anicteric and conjunctiva were pink and moist. Extraocular movements were intact and pupils were equal round and reactive to light. Eyelids were unremarkable. PULMONARY: Unlabored respirations. Good breath sounds bilaterally. No audible rales rhonchi or wheezing was noted. CARDIOVASCULAR: There is a regular rate and rhythm without any murmurs gallops or rubs. ABDOMEN: Soft and nontender with normal bowel sounds. SKIN: Skin is clear with no lesions or rashes and otherwise unremarkable. NEUROLOGIC: Patient is alert and oriented x3. Cranial nerves II through XII are grossly intact. Motor and sensory are also intact. Normal speech, volume and content. Symmetrical smile. MUSCULOSKELETAL: Normal extremities with adequate strength and full range of motion. No lower extremity swelling or edema. No calf tenderness. LYMPHATICS: No significant lymphadenopathy is noted PSYCHIATRIC: Normal psychiatric evaluation. Limitations: no limitations Course Vital Signs 06/06/22 06/06/22 06/06/22 12:02 13:20 13:54 Temperature 98.0 F Pulse Rate 81 75 73 Respiratory 20 18 14 Rate Blood Pressure 144/87 134/69 131/63 O2 Sat by Pulse 96 97 96 Oximetry Medical Decision Making - Medical Decision Making EKG was interpreted by myself EKG shows sinus rhythm at 73 bpm TN interval 159 QRSs 158 QTC intervals 432 QTC is 458. Patient's EKG shows left bundle branch block patient states she's had a left bundle branch block in the past. Was pt. sent in by a medical professional or institution (, PA, [employer], urgent care, hospital, or halfway...) When possible be specific @ -No Did you speak to anyone other than the patient for history (EMS, parent, family, police, friend...)? What history was obtained from this source @ -No Did you review nursing and triage notes (agree or disagree)? Why? @ -I reviewed and agree with nursing and triage notes Were old charts reviewed (outside hosp., previous admission, EMS record, old EKG, old radiological studies, urgent care reports/EKG's, halfway records)? Report findings @ -No old charts were reviewed Differential Diagnosis (chest pain, altered mental status, abdominal pain women, abdominal pain men, vaginal bleeding, weakness, fever, dyspnea, syncope, headache, dizziness, GI bleed, back pain, seizure, CVA, palpatations, mental health, musculoskeletal)? @ -Differential Chest Pain: Stable Angina, Unstable Angina, STEMI, NSTEMI Aortic Dissection, Pneumothorax, Musculoskeletal, Esophageal Spasm GERD, Cholecystitis, Pancreatitis, Zoster, this is not meant to be an all-inclusive list. EKG interpreted by me (3pts min.). @ -As above X-rays interpreted by me (1pt min.). @ -Chest x-ray was interpreted by myself I saw no acute abnormalities CT interpreted by me (1pt min.). @ -None done U/S interpreted by me (1pt. min.). @ -None done What testing was considered but not performed or refused? (CT, X-rays, U/S, labs)? Why? @ -None What meds were considered but not given or refused? Why? @ -None Did you discuss the management of the patient with other professionals (professionals i.e. , PA, [employer], lab, RT, psych nurse, rn social services, sheet metal worker helper, teacher, fundraising officer, major case detective)? Give summary @ -I spoke with Dr. Murillo about admitting this patient and he agreed. Was smoking cessation discussed for >3mins.? @ -No Was critical care preformed (if so, how long)? @ -No Were there social determinants of health that impacted care today? How? (Homelessness, low income, unemployed, alcoholism, drug addiction, transportation, low edu. Level, literacy, decrease access to med. care, penitentiary, rehab)? @ -No Was there de-escalation of care discussed even if they declined (Discuss DNR or withdrawal of care, Hospice)? DNR status @ -No What co-morbidities impacted this encounter? (DM, HTN, Smoking, COPD, CAD, Cancer, CVA, ARF, Chemo, Hep., AIDS, mental health diagnosis, sleep apnea, morbid obesity)? @ -None Was patient admitted / discharged? Hospital course, mention meds given and route, prescriptions, significant lab abnormalities, going to OR and other pertinent info. @ -Patient arrived chest pain-free and she remained chest pain-free throughout her ED course. I spoke with Dr. Murillo after lab results came back all of which were negative and I admitted the patient I wrote admitting orders I consult cardiology I continue aspirin and Nitropaste on the floor. Undiagnosed new problem with uncertain prognosis? @ -No Drug Therapy requiring intensive monitoring for toxicity (Heparin, Nitro, Insulin, Cardizem)? @ -No Were any procedures done? @ -No Diagnosis/symptom? @ -Unstable angina Acute, or Chronic, or Acute on Chronic? @ -Acute Uncomplicated (without systemic symptoms) or Complicated (systemic symptoms)? @ -Complicated Side effects of treatment? @ -No Exacerbation, Progression, or Severe Exacerbation? @ -No Poses a threat to life or bodily function? How? (Chest pain, [place], AR, pneumonia, PE, COPD, DKA, ARF, appy, cholecystitis, CVA, Diverticulitis, Homicidal, Suicid al, threat to staff... and all critical care pts) @ -Yes this could lead to hypoperfusion and end organ dysfunction - Lab Data Result diagrams: 06/06/22 12:54 06/06/22 12:54 Lab Results 06/06/22 06/06/22 06/06/22 Range/Units 12:54 12:54 12:54 WBC 9.0 (3.8-10.6) k/uL RBC 4.63 (3.80-5.40) m/uL Hgb 13.7 (11.4-16.0) gm/dL Hct 40.4 (34.0-46.0) % MCV 87.2 (80.0-100.0) fL MCH 29.7 (25.0-35.0) pg MCHC 34.0 (31.0-37.0) g/dL RDW 14.7 (11.5-15.5) % Plt Count 178 (150-450) k/uL MPV 7.6 Neutrophils % 76 % Lymphocytes % 14 % Monocytes % 5 % Eosinophils % 4 % Basophils % 1 % Neutrophils # 6.8 (1.3-7.7) k/uL Lymphocytes # 1.3 (1.0-4.8) k/uL Monocytes # 0.4 (0-1.0) k/uL Eosinophils # 0.4 (0-0.7) k/uL Basophils # 0.1 (0-0.2) k/uL PT 10.7 (9.0-12.0) sec INR 1.0 (<1.2) APTT 23.3 (22.0-30.0) sec Sodium 138 (137-145) mmol/L Potassium 4.2 (3.5-5.1) mmol/L Chloride 104 (98-107) mmol/L Carbon Dioxide 25 (22-30) mmol/L Anion Gap 9 mmol/L BUN 11 (7-17) mg/dL Creatinine 0.53 (0.52-1.04) mg/dL Est GFR (CKD-EPI)AfAm >90 (>60 ml/min/1.73 sqM) Est GFR (CKD-EPI)NonAf >90 (>60 ml/min/1.73 sqM) Glucose 206 H (74-99) mg/dL Calcium 8.9 (8.4-10.2) mg/dL Magnesium 1.9 (1.6-2.3) mg/dL Total Bilirubin 1.5 H (0.2-1.3) mg/dL AST 55 H (14-36) U/L ALT 54 H (4-34) U/L Alkaline Phosphatase 186 H (38-126) U/L Troponin I (0.000-0.034) ng/mL Total Protein 7.1 (6.3-8.2) g/dL Albumin 4.1 (3.5-5.0) g/dL 06/06/22 Range/Units 12:54 WBC (3.8-10.6) k/uL RBC (3.80-5.40) m/uL Hgb (11.4-16.0) gm/dL Hct (34.0-46.0) % MCV (80.0-100.0) fL MCH (25.0-35.0) pg MCHC (31.0-37.0) g/dL RDW (11.5-15.5) % Plt Count (150-450) k/uL MPV Neutrophils % % Lymphocytes % % Monocytes % % Eosinophils % % Basophils % % Neutrophils # (1.3-7.7) k/uL Lymphocytes # (1.0-4.8) k/uL Monocytes # (0-1.0) k/uL Eosinophils # (0-0.7) k/uL Basophils # (0-0.2) k/uL PT (9.0-12.0) sec INR (<1.2) APTT (22.0-30.0) sec Sodium (137-145) mmol/L Potassium (3.5-5.1) mmol/L Chloride (98-107) mmol/L Carbon Dioxide (22-30) mmol/L Anion Gap mmol/L BUN (7-17) mg/dL Creatinine (0.52-1.04) mg/dL Est GFR (CKD-EPI)AfAm (>60 ml/min/1.73 sqM) Est GFR (CKD-EPI)NonAf (>60 ml/min/1.73 sqM) Glucose (74-99) mg/dL Calcium (8.4-10.2) mg/dL Magnesium (1.6-2.3) mg/dL Total Bilirubin (0.2-1.3) mg/dL AST (14-36) U/L ALT (4-34) U/L Alkaline Phosphatase (38-126) U/L Troponin I <0.012 (0.000-0.034) ng/mL Total Protein (6.3-8.2) g/dL Albumin (3.5-5.0) g/dL Disposition Clinical Impression: Unstable angina Disposition: ADMITTED IP TO THIS HOSP Referrals: Aiyana Russo DO [Primary Care Provider] - 1-2 days Time of Disposition: 14:31
[2022-06-06 13:03] LABS: Basophils # (A) 0.1 k/uL (0-0.2); Basophils % (A) 1 %; Eosinophils # (A) 0.4 k/uL (0-0.7); Eosinophils % (A) 4 %; HCT 40.4 % (34.0-46.0); HGB 13.7 gm/dL (11.4-16.0); Lymphocytes # (A) 1.3 k/uL (1.0-4.8); Lymphocytes % (A) 14 %; MCH 29.7 pg (25.0-35.0); MCV 87.2 fL (80.0-100.0); Mean Platelet Volume 7.6; Monocytes # (A) 0.4 k/uL (0-1.0); Monocytes % (A) 5 %; Neutrophils # (A) 6.8 k/uL (1.3-7.7); Neutrophils % (A) 76 %; Platelet Count 178 k/uL (150-450); RBC 4.63 m/uL (3.80-5.40); RDW 14.7 % (11.5-15.5)
[2022-06-06 13:13] LABS: ALT 54 U/L (4-34); African American GFR (CKD) >90 (>60 ml/min/1.73 sqM); Albumin 4.1 g/dL (3.5-5.0); Anion Gap 9 mmol/L; Blood Urea Nitrogen 11 mg/dL (7-17); Calcium 8.9 mg/dL (8.4-10.2); Carbon Dioxide 25 mmol/L (22-30); Chloride 104 mmol/L (98-107); Glucose 206 mg/dL (74-99); Magnesium 1.9 mg/dL (1.6-2.3); Non-African American GFR(CKD) >90 (>60 ml/min/1.73 sqM); Partial Thromboplastin Time 23.3 sec (22.0-30.0); Prothrombin Time 10.7 sec (9.0-12.0); Sodium 138 mmol/L (137-145); Total Bilirubin 1.5 mg/dL (0.2-1.3); Total Protein 7.1 g/dL (6.3-8.2)
[2022-06-06 13:20] LABS: AST 55 U/L (14-36); Alkaline Phosphatase 186 U/L (38-126); Potassium 4.2 mmol/L (3.5-5.1)
--- NOTE | 2022-06-06 13:28 | XR ---
EXAMINATION TYPE: XR chest 2V DATE OF EXAM: 06/06/2022 1:19 PM COMPARISON: Chest radiographs from 06/29/2018. TECHNIQUE: XR chest 2V Frontal and lateral views of the chest. CLINICAL INDICATION:Female, 62 years old with history of Chest Pain; FINDINGS: Lungs/Pleura: There is no evidence of pleural effusion, focal consolidation, or pneumothorax. Chroni c senescent parenchymal change. Pulmonary vascularity: Unremarkable. Heart/mediastinum: Cardiomediastinal silhouette is unremarkable. Musculoskeletal: No acute osseous pathology. Other findings: Surgical clips overlie the right breast. IMPRESSION: No acute cardiopulmonary disease/process.
[2022-06-06] MEDS ORDERED: NITROGLYCERIN SL TABS 0.4 MG TAB SUBLINGUAL PRN (14:32)
[2022-06-06] MEDS ORDERED: SYMBICORT 160-4.5 MCG INHALER INHALATION PRN (14:33)
[2022-06-06] MEDS: NITROGLYCERIN OINT 1 INCH/GM PACKET TOPICAL SCH (17:33)
[2022-06-06] MEDS ORDERED: ATORVASTATIN 80 MG TAB PO SCH (21:00)
[2022-06-06] MEDS ORDERED: SERTRALINE 25 MG TAB PO SCH (21:00)
[2022-06-06] MEDS ORDERED: diphenhydrAMINE 25 MG CAP PO SCH (21:00)
[2022-06-06] MEDS ORDERED: ACETAMINOPHEN TAB 325 MG TAB PO PRN (21:53)
[2022-06-07 02:12] VITALS: TEMP 97.9
--- NOTE | 2022-06-07 02:28 | P.HPIM ---
History of Present Illness H&P Date: 06/06/22 Chief Complaint: Chest pain Patient is a 60-year-old female with a known history of coronary artery disease status post cardiac catheterization in 2019, hypertension, hyperlipidemia, osteoarthritis came to ER with complaints of chest pressure and shortness of breath. Patient states that she was at work and suddenly felt very short of breath and had chest tightness and pressure-like sensation. Symptoms lasted about 6 minutes. Blood pressure was high with SBP in the greater than 190s when she checked blood at that time. Chest tightness and did improve slowly. Patien t came to ER further evaluation. Patient had a prior catheterization and was told she has 50% blockages of the coronary arteries. No prior history of PCI. Denies any radiation of the pain. No complaints of nausea or vomiting. No diaphoresis. No nausea or vomiting or abdominal pain or diarrhea. Denies any recent illnesses. No calf tenderness or leg swelling recently. No recent illnesses. Chest x-ray showed no acute cardiopulmonary disease/process. EKG showed sinus rhythm with left axis deviation. Laboratory data showed WBC 9.0 hemoglobin 13.7 platelets 178, INR 1.0 Sodium 138 potassium 4.2 chloride 104 bicarb is 25 BUN 11 creatinine 0.53 and blood sugar is 206 total bilirubin level is 1.5 AST 55 ALT 54 alk phos 186 and troponin x3 negative Review of Systems Constitutional: Patient denies any fever or chills . no Generalized weakness. Abdomen: Patient denied any nausea or vomiting or abd. pain Cardiovascular: Patient denies any chest pain or short of breath no palpitations. Respiratory: patient denied any cough . no sputum production. No shortness of breath Neurologic: Patient denied any numbness or tingling headache. Musculoskeletal: Patient denies any complaints of joint swelling or deformity. Skin: Negative Psychiatric: Negative Endocrine: No heat or cold intolerance. No recent weight gain. Genitourinary: No dysuria or hematuria. All other 14 point ROS negative except the above Past Medical History Past Medical History: Asthma, Coronary Artery Disease (CAD), Diabetes Mellitus, Hyperlipidemia, Hypertension, Osteoarthritis (OA) Additional Past Medical History / Comment(s): No medications for tj cholesterol due to elevated liver enzymes. stopped 6-8 months ago. History of Any Multi-Drug Resistant Organisms: None Reported Past Surgical History: Breast Surgery, Heart Catheterization Additional Past Surgical History / Comment(s): HEMORRHOIDECTOMY Past Anesthesia/Blood Transfusion Reactions: Motion Sickness Past Psychological History: No Psychological Hx Reported Smoking Status: Never smoker Past Alcohol Use History: Occasional Past Drug Use History: None Reported - Past Family History Father Family Medical History: No Reported History Brother(s) Family Medical History: Myocardial Infarction ([place]) Additional Family Medical History / Comment(s): Mi at 30 Mother Family Medical History: No Reported History Additional Family Medical History / Comment(s): Grandparents on both sides have cardiac history-diagnosis. Medications and Allergies Home Medications Medication Instructions Recorded Confirmed Type Budesonide/Formoterol Fumarate 2 puff INHALATION RT-BID PRN 06/29/18 06/06/22 History [Symbicort 160-4.5 Mcg Inhaler] Cetirizine HCl [Zyrtec] 10 mg PO DAILY 06/29/18 06/06/22 History Atorvastatin [Lipitor] 80 mg PO HS #30 tab 07/01/18 06/06/22 Rx Aspirin EC [Ecotrin Low Dose] 81 mg PO DAILY 06/06/22 06/06/22 History Losartan Potassium 100 mg PO DAILY 06/06/22 06/06/22 History Metoprolol Succinate (ER) [Toprol 50 mg PO DAILY 06/06/22 06/06/22 History XL] Sertraline [Zoloft] 25 mg PO HS 06/06/22 06/06/22 History diphenhydrAMINE HCL [Benadryl] 25 mg PO HS 06/06/22 06/06/22 History Allergies Allergy/AdvReac Type Severity Reaction Status Date / Time Sulfa (Sulfonamide Allergy Rash/Hives Verified 06/06/22 12:46 Antibiotics) sulfamethoxazole Allergy Rash/Hives Verified 06/06/22 12:48 [From Bactrim] trimethoprim [From Bactrim] Allergy Rash/Hives Verified 06/06/22 12:48 Physical Exam Vitals: Vital Signs Temp Pulse Resp BP Pulse Ox 06/06/22 15:00 77 18 96 06/06/22 14:22 72 18 129/60 97 06/06/22 13:54 73 14 131/63 96 06/06/22 13:20 75 18 134/69 97 06/06/22 12:02 98.0 F 81 20 144/87 96 Intake and Output 06/06/22 06/06/2206/06/23 06:59 14:59 22:59 Other: Weight 106.141 kg PHYSICAL EXAMINATION: Patient is lying in the bed comfortably, no acute distress, awake alert and oriented.. HEENT: Normocephalic. Neck is supple. Pupils reactive. Nostrils clear. Oral cavity is moist. Neck reveals no JVD, carotid bruits, or thyromegaly. CHEST EXAMINATION: Trachea is central. Symmetrical expansion. Lung gagnon clear to auscultation and percussion. CARDIAC: Normal S1, S2 with no gallops. No murmurs ABDOMEN: Soft. Bowel sounds present. Nontender. No organomegaly. No abdominal bruits. Extremities: reveal no edema. No clubbing or cyanosis Neurologically awake, alert, oriented x3 with well-coordinated movements. No focal deficits noted Skin: No rash or skin lesions. Psychiatric: Coperative. Nonsuicidal, Musculoskeletal: No joint swelling or deformity. Normal range of motion. Results CBC & Chem 7: 06/06/22 12:54 06/07/22 10:12 Labs: Abnormal Lab Results - Last 24 Hours (Table) 06/06/22 Range/Units 12:54 Glucose 206 H (74-99) mg/dL Total Bilirubin 1.5 H (0.2-1.3) mg/dL AST 55 H (14-36) U/L ALT 54 H (4-34) U/L Alkaline Phosphatase 186 H (38-126) U/L Thrombosis Risk Factor Assmnt - DVT/VTE Prophylaxis DVT/VTE Prophylaxis: Pharmacologic Prophylaxis ordered Assessment and Plan Assessment: Chest pain possible anginal-like symptoms. Rule out ACS Elevated blood pressure prior to arrival to ER. Currently controlled. Elevated liver enzymes Hypertension Hyperlipidemia Osteoarthritis History of coronary disease Asthma mild exacerbation DVT prophylaxis with heparin subcu. Plan: Patient will be continued on telemetry monitoring. Follow-up serial EKG and troponin x3. Cardiology consult. Cardiology is planning for stress test tomorrow. Continue to follow closely. Due to elevated liver enzymes ultrasound of the abdomen was ordered. Patient denies any right upper quadrant abdominal pain. Continue symptomatic management and follow-up closely. Time with Patient: Greater than 30
[2022-06-07] MEDS: NITROGLYCERIN OINT 1 INCH/GM PACKET TOPICAL SCH ×4 (04:28→16:54)
[2022-06-07 06:14] LABS: Glucose,Whole Blood 184 mg/dL (70-110)
[2022-06-07] MEDS: INSULIN ASPART (NovoLOG) 100 UNIT/ML VIAL SQ SCH ×3 (06:49→16:54)
[2022-06-07] MEDS: HEPARIN SODIUM,PORCINE/PF 5,000 UNIT/0.5 ML SYRINGE SQ SCH ×2 (08:13→16:53)
[2022-06-07 08:16] VITALS: RESP 16
[2022-06-07] MEDS ORDERED: LOSARTAN 50 MG TAB PO SCH (09:00)
[2022-06-07] MEDS ORDERED: ASPIRIN 325 MG TAB PO SCH (09:00)
[2022-06-07] MEDS ORDERED: METOPROLOL SUCCINATE (ER) 50 MG TAB.ER.24H PO SCH (09:00)
[2022-06-07] MEDS ORDERED: CAFFEINE CITRATE 60 MG/3 ML VIAL IV PRN (09:28)
[2022-06-07] MEDS ORDERED: AMINOPHYLLINE 500 MG/20 ML VIAL IV PRN (09:28)
[2022-06-07] MEDS ORDERED: REGADENOSON 0.4 MG/5 ML SYRINGE IV PRN (09:28)
[2022-06-07] MEDS ORDERED: SODIUM CHLORIDE 0.9% 1,000 ML IV SCH (09:30)
[2022-06-07 10:59] LABS: ALT 55 U/L (4-34); AST 47 U/L (14-36); African American GFR (CKD) >90 (>60 ml/min/1.73 sqM); Alkaline Phosphatase 198 U/L (38-126); Anion Gap 7 mmol/L; Blood Urea Nitrogen 11 mg/dL (7-17); Calcium 8.7 mg/dL (8.4-10.2); Carbon Dioxide 28 mmol/L (22-30); Chloride 102 mmol/L (98-107); Glucose 182 mg/dL (74-99); Non-African American GFR(CKD) >90 (>60 ml/min/1.73 sqM); Potassium 4.1 mmol/L (3.5-5.1); Sodium 137 mmol/L (137-145); Total Bilirubin 1.8 mg/dL (0.2-1.3); Total Protein 6.8 g/dL (6.3-8.2)
[2022-06-07 12:40] LABS: Glucose,Whole Blood 169 mg/dL (70-110)
--- NOTE | 2022-06-07 14:01 | CONS ---
CONSULTATION HISTORY OF PRESENT ILLNESS: Ms. 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 She has hypertension, hyperlipidemia, and atypical chest pain, had a cardiac catheterization in 2018, which revealed noncritical CAD. The study was performed on July 01, 2018, and there was mild disease involving the LAD and also RCA. Filling pressures were normal. She did not follow up with Dr. Tran since 2019. She comes in today because of a situation at work when she felt very short of breath and had chest tightness and pressure. She apparently was not under any particular stress, but she felt uncomfortable tightness in the chest. She went and had an evaluation of her blood pressure which was elevated to 190 systolic and then came into the hospital. Her chest tightness has improved. She is resting comfortably, has no chest pain or shortness of breath. Her troponins are all normal. The quality of chest pain may suggest angina, but she is resting comfortably. She has underlying left bundle-branch block pattern. Her other comorbid conditions include hypertension, hyperlipidemia, and obesity. PAST MEDICAL HISTORY: 1. Cardiac catheterization with noncritical CAD in June 2018. 2. Hypertension. 3. Hyperlipidemia. 4. History of some bronchial asthma. MEDICATIONS AT HOME: Include: 1. Zoloft. 2. Metoprolol succinate 50 mg daily. 3. Losartan 100 mg daily. 4. Zyrtec. 5. Lipitor 80 mg daily. 6. Aspirin 81 mg daily. ALLERGIES: Sulfa and trimethoprim. PHYSICAL EXAMINATION: VITAL SIGNS: Blood pressure is 124/70, pulse rate is 80 per minute and regular. HEENT: Unremarkable. Fundus was not examined by me. NECK: Supple. No JVD. I do not hear any carotid bruit. HEART: Reveals S1 and S2 heard normally. No significant rub, murmur, or gallop. LUNGS: Clear. ABDOMEN: Soft and nontender. EXTREMITIES: Lower extremities reveal diminished pulses. CENTRAL NERVOUS SYSTEM: Normal. IMAGING STUDIES: EKG revealed sinus mechanism, left bundle-branch block pattern, leftward axis. LABORATORY DATA: Revealed unremarkable troponins. Normal renal function. Normal hemoglobin and platelets. IMPRESSION: 1. Chest pain syndrome, cannot exclude angina. 2. Hypertension. 3. Hyperlipidemia. 4. Obesity. RECOMMENDATIONS: I am recommending that we will proceed with a Lexiscan stress test, and if normal, she can be discharged; if abnormal, we will address based on the findings. Discussed my thoughts in detail with the patient as well as her . Thank you very much for the consult. JARED / NILAY: [id number] /
--- NOTE | 2022-06-07 15:31 | NM ---
EXAMINATION TYPE: NM stress lexiscan cardiolite DATE OF EXAM: 06/07/2022 COMPARISON: NONE HISTORY: TECHNIQUE: After the intravenous administration of 10 mCi Tc 99m Sestamibi - Cardiolite resting SPEC T images acquired 60 minutes post injection. At peak stress 25.4 mCi Tc 99m Sestamibi - Stress images obtained 40 minutes post injection The patient was stressed with 0.4mg Lexiscan. FINDINGS: No fixed defects are evident There is mild diminished radiotracer accumulation at the distal anterior wall on stress images. Appea rs to be matched on the resting images. Reversible perfusion defects are not identified. This area ap pears to be under represented on the polar maps. There is some dyskinesia of the septal wall near the cardiac apex. Ejection fraction is calculated to be 68 %. IMPRESSION: 1. Mild prior distal anterior wall infarct may be present. 2. Septal dyskinesia near the cardiac apex.
--- NOTE | 2022-06-07 15:49 | US ---
EXAMINATION TYPE: US abdomen limited DATE OF EXAM: 06/07/2022 COMPARISON: NONE CLINICAL HISTORY: elevated liver enzymes. Elevated liver enzymes TECHNIQUE: Multiple sonographic images of the right upper quadrant are obtained. FINDINGS: EXAM MEASUREMENTS: Liver Length: 19.7 cm. Normal less than 15.5 cm. Gallbladder Wall: 0.3 cm CBD: 0.5 cm Right Kidney: 13.9 x 4.6 x 4.5 cm CONSUMER RECRUITER NOTES: Technical limitations due to large amount of overlying bowel Pancreas: Obscured by bowel gas Liver: enlarged, attenuating compatible with mild fatty infiltration. Gallbladder: no evidence of stones, hydropic = 11.2cm Evidence for sonographic Saba's sign: no CBD: limited evaluation Right Kidney: no evidence of hydronephrosis IMPRESSION: Hepatomegaly with mild fatty infiltration of the liver.
[2022-06-07 16:07] LABS: Chol/HDL Ratio 3.28 Ratio; LDL Cholesterol,Calculated 85.5 mg/dL (0.0-131.0); VLDL Calculation 16.66 mg/dL (5.00-40.00)
[2022-06-07 16:25] LABS: Glucose,Whole Blood 215 mg/dL (70-110)
[2022-06-07 16:59] VITALS: BP 146/75; PULSE 81
--- NOTE | 2022-06-07 17:41 | CA ---
Lexiscan Nuclear Stress Test Report Name: Mabel Lujan Exam Date: 06/07/2022 11:34 Exam Location: [facility] Ht (in): 65 Wt (lb): 234 BSA: 2.11 Ordering Phys: Zoie Colon Referring Phys: ,, Technologist: Wade Bryson Age: 62 Gender: F : 1960 Procedure CPT: Indications: Reflex order-Stress test ICD-10 Codes: Patient History: CHEST PAIN, DIFFICULTY IN BREATHING, PALPITATIONS, HTN, ELEVATED CHOLESTEROL LEVELS, PRIOR CATH, ASTHMA, DIABETIC Medications: Meds past 24 hrs: Pretest Chest Pain: STRESS TEST Lexiscan Protocol Exercise Duration (min:sec): 01:[address] Depressions (mm): Angina Score: Hewitt Score: Resting HR (bpm): 83 Peak HR (bpm): 102 Resting BP (mmHg): 137 / 79 Peak BP (mmHg): 160 / 77 MPHR: 158 Target HR: 134 % MPHR: 65 METS: 1.0 Total Dose: Peak Dose: Atropine: Double Product: 27582 BP Response: Stress Termination: INFUSION COMPLETE Stress Symptoms: HEADACHE Stress Summary: ECG ANALYSIS Resting ECG: Stress ECG: CONCLUSIONS Lexiscan infusion Baseline 12-lead EKG shows a left bundle branch block pattern sinus mechanism Baseline heart rate 84 beats a minute, Baseline blood pressure 137/77 mmHg No ECG abnormalities noted during Lexiscan infusion Patient complained of headache Nuclear portion will be reported separately Dr. Tam Strange MD (Electronically Signed) Final Date: 07 June 2022 17:40
--- NOTE | 2022-06-15 17:21 | P.DS ---
Providers Date of admission: 06/06/22 14:32 Expected date of discharge: 06/07/22 Attending physician: Chung Murillo Consults: 06/06/22 14:32 Consult Physician Urgent Consulting Provider: [facility] Consult Reason/Comments: Unstable angina Do you want consulting provider notified?: Yes Primary care physician: Aiyana Russo Hospital Course: Discharge diagnosis Chest pain possible anginal-like symptoms. Ruled out ACS. Negative Lexiscan stress test. Elevated blood pressure prior to arrival to ER. Currently controlled. Elevated liver enzymes Hypertension Hyperlipidemia Osteoarthritis History of coronary disease Asthma mild exacerbation DVT prophylaxis with heparin subcu. Hospital course Patient is a 60-year-old female with a known history of coronary artery disease status post cardiac catheterization in 2019, hypertension, hyperlipidemia, osteoarthritis came to ER with complaints of chest pressure and shortness of breath. Patient states that she was at work and suddenly felt very short of breath and had chest tightness and pressure-like sensation. Symptoms lasted about 6 minutes. Blood pressure was high with SBP in the greater than 190s when she checked blood at that time. Chest tightness and did improve slowly. Patient came to ER further evaluation. Patient had a prior catheterization and was told she has 50% blockages of the coronary arteries. No prior history of PCI. Denies any radiation of the pain. No complaints of nausea or vomiting. No diaphoresis. No nausea or vomiting or abdominal pain or diarrhea. Denies any recent illnesses. No calf tenderness or leg swelling recently. No recent illnesses. Chest x-ray showed no acute cardiopulmonary disease/process. EKG showed sinus rhythm with left axis deviation. Laboratory data showed WBC 9.0 hemoglobin 13.7 platelets 178, INR 1.0 Sodium 138 potassium 4.2 chloride 104 bicarb is 25 BUN 11 creatinine 0.53 and blood sugar is 206 total bilirubin level is 1.5 AST 55 ALT 54 alk phos 186 and troponin x3 negative Patient was continued on telemetry monitoring. Follow-up serial EKG and troponin x3 negative. Cardiology consult. Cardiology is planning for stress test tomorrow. Continue to follow closely. Due to elevated liver enzymes ultrasound of the abdomen was ordered. Patient denies any right upper quadrant abdominal pain.Patient was seen by cardiology. Recommended Lexiscan stress test. Stress test showed no EKG abnormalities noticed in urine Lexiscan infusion. 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 Septal dyskinesia near the cardiac apex. Patient is cleared from cardiology standpoint and is being discharged home and follow-up as an outpatient with primary care physician and cardiology. Patient was recommended to follow-up with primary care physician to repeat liver function test. Ultrasound abdomen showed hepatomegaly with mild fatty infiltration of the liver. No ductal dilatation noted. Patient is being discharged home. PHYSICAL EXAMINATION: Patient is lying in the bed comfortably, no acute distress, awake alert and oriented.. HEENT: Normocephalic. Neck is supple. Pupils reactive. Nostrils clear. Oral cavity is moist. Neck reveals no JVD, carotid bruits, or thyromegaly. CHEST EXAMINATION: Trachea is central. Symmetrical expansion. Lung gagnon clear to auscultation and percussion. CARDIAC: Normal S1, S2 with no gallops. No murmurs ABDOMEN: Soft. Bowel sounds present. Nontender. No organomegaly. No abdominal bruits. Extremities: reveal no edema. No clubbing or cyanosis Neurologically awake, alert, oriented x3 with well-coordinated movements. No focal deficits noted Skin: No rash or skin lesions. Psychiatric: Coperative. Nonsuicidal, Musculoskeletal: No joint swelling or deformity. Normal range of motion. Discharge vitals reviewed. Patient Condition at Discharge: Stable Plan - Discharge Summary Discharge Rx Participant: Yes New Discharge Prescriptions: Continue Budesonide/Formoterol Fumarate [Symbicort 160-4.5 Mcg Inhaler] 2 puff INHALATION RT-BID PRN PRN Reason: Shortness Of Breath Cetirizine HCl [Zyrtec] 10 mg PO DAILY Atorvastatin [Lipitor] 80 mg PO HS #30 tab diphenhydrAMINE HCL [Benadryl] 25 mg PO HS Aspirin EC [Ecotrin Low Dose] 81 mg PO DAILY Metoprolol Succinate (ER) [Toprol XL] 50 mg PO DAILY Losartan Potassium 100 mg PO DAILY Sertraline [Zoloft] 25 mg PO HS Discharge Medication List Budesonide/Formoterol Fumarate [Symbicort 160-4.5 Mcg Inhaler] 2 puff INHALATION RT-BID PRN 06/29/18 [History] Cetirizine HCl [Zyrtec] 10 mg PO DAILY 06/29/18 [History] Atorvastatin [Lipitor] 80 mg PO HS #30 tab 07/01/18 [Rx] Aspirin EC [Ecotrin Low Dose] 81 mg PO DAILY 06/06/22 [History] Losartan Potassium 100 mg PO DAILY 06/06/22 [History] Metoprolol Succinate (ER) [Toprol XL] 50 mg PO DAILY 06/06/22 [History] Sertraline [Zoloft] 25 mg PO HS 06/06/22 [History] diphenhydrAMINE HCL [Benadryl] 25 mg PO HS 06/06/22 [History] Follow up Appointment(s)/Referral(s): Brian Tran MD [STAFF PHYSICIAN] - 1 Week Aiyana Russo DO [Primary Care Provider] - 1-2 days Discharge Disposition: HOME SELF-CARE
== END 2022-06-07 20:55 | disposition home or self-care (01) ==
LOC: EC 11:51 → 3SCARD 14:32 → INTOOBSV 14:32 → 3SCARD 16:15 → UNDODISIN 06-07 20:40
PROVIDERS: ADMIT Internal Medicine; ATTEND Internal Medicine
DX: R07.89 Other chest pain (principal); E78.00 Pure hypercholesterolemia, unspecified; I25.10 Atherosclerotic heart disease of native coronary artery without angina pectoris; E11.9 Type 2 diabetes mellitus without complications; I10 Essential (primary) hypertension; I44.7 Left bundle-branch block, unspecified; J45.901 Unspecified asthma with (acute) exacerbation; E66.9 Obesity, unspecified; G24.9 Dystonia, unspecified; K76.0 Fatty (change of) liver, not elsewhere classified; Z79.82 Long term (current) use of aspirin; Z79.899 Other long term (current) drug therapy; Z88.2 Allergy status to sulfonamides; Z88.1 Allergy status to other antibiotic agents; Z82.49 Family history of ischemic heart disease and other diseases of the circulatory system; Z68.38 Body mass index [BMI] 38.0-38.9, adult
CPT/HCPCS: 96372; 99285; 36415; 93005; 93017; 80061; 80053 ×2; 83735; 84484; 85025; 85610; 85730; 71046; 76705; 78452; G0378 ×2; A9500; J2785; J1644